=== PATIENT | male | born 1960 | race African-American/Black ===

== ENCOUNTER 2023-06-27 12:36 | Emergency (ER) | payer OTHER ==
[~2023-06-27] VITALS: Ht 175.3 cm; Wt 72.6 kg
[2023-06-27 12:37] VITALS: BP_SYST 160; PULSE 102; RESP 18; TEMP 99.1; O2SAT 99
[2023-06-27] MEDS: KETOROLAC TROMETHAMINE 60 MG/2 ML VIAL IM ONE (13:42)
[2023-06-27] MEDS ORDERED: IBUP-1971 PO (13:49)
[2023-06-27 14:12] VITALS: BP_SYST 160; PULSE 102; RESP 18; TEMP 99.1; O2SAT 99
== END 2023-06-27 14:11 | disposition home or self-care (01) ==
LOC: SED 12:36
DX: M25.561 Pain in right knee (principal); Z79.899 Other long term (current) drug therapy
CPT/HCPCS: 99283; 73564; 96372; J1885

== ENCOUNTER 2023-07-04 21:57 | Emergency (ER) | payer OTHER ==
[~2023-07-04] VITALS: Ht 175.3 cm; Wt 74.8 kg
[~2023-07-04 21:57] MED LIST: IBUP-1971 PO
[2023-07-04 22:00] VITALS: BP_SYST 137; PULSE 94; RESP 16; TEMP 98.1; O2SAT 98
[2023-07-04 23:45] VITALS: BP_SYST 121; PULSE 87; RESP 18; TEMP 97.7; O2SAT 96
== END 2023-07-04 23:45 | disposition home or self-care (01) ==
LOC: SED 21:57
DX: M79.631 Pain in right forearm (principal); Z79.899 Other long term (current) drug therapy
CPT/HCPCS: 73090; 99283